=== PATIENT | female | born 1935 | race Caucasian/White ===

== ENCOUNTER 2021-07-09 13:59 | Emergency (ER) | payer MEDICARE ==
[2021-07-09 16:31] LABS: HEMOGLOBIN 15.8 gm/dl (12.3-15.3); RED BLOOD COUNT 4.84 M/UL (4.00-5.10); WHITE BLOOD COUNT 12.5 K/UL (4.5-11.0)
[2021-07-09 16:57] LABS: BUN/CREATININE RATIO 13 (0-10)
[2021-07-09] MEDS ORDERED: PERCOCET 5/325 T1 EA PO (18:10)
== END 2021-07-09 18:33 | disposition home or self-care (01) ==
LOC: ER1 13:59
PROVIDERS: Family Medicine
DX: S32.592A Other specified fracture of left pubis, initial encounter for closed fracture (principal); I10 Essential (primary) hypertension; E11.9 Type 2 diabetes mellitus without complications; F17.210 Nicotine dependence, cigarettes, uncomplicated; I51.9 Heart disease, unspecified; Z95.5 Presence of coronary angioplasty implant and graft; W19.XXXA Unspecified fall, initial encounter
CPT/HCPCS: 71045; 72128; 72192; 73502; 80053; 81001; 82550; 82553; 83874; 84484; 85025; 93005; 99284